=== PATIENT | male | born 1970 | race Caucasian/White ===

== ENCOUNTER 2018-07-01 09:34 | Outpatient (CLI) | payer BC, SELFPAY ==
[2018-07-01 10:02] LABS: Absolute Basophil Count 0.03 k/cumm (0.0-0.2); Absolute Eosinophil Count 0.05 k/cumm (0.0-0.7); Absolute Lymphocyte Count 1.62 k/cumm (1.2-3.4); Absolute Monocyte Count 0.32 k/cumm (0.11-0.7); Absolute Neutrophil Count 2.23 k/cumm (1.2-6.7); Basophils % 0.7; Eosinophils % 1.2; HCT 41.9 % (40.0-50.0); HGB 14.3 g/dL (13.5-17.5); Lymphocytes % 38.1; Mean Corp. HGB Concentration 34.1 g/dL (32.0-36.0); Mean Corpuscular Hemoglobin 28.5 pg (27.0-33.0); Mean Corpuscular Volume 83.6 fL (80-95); Mean Platelet Volume 10.5 fL (8.0-11.0); Monocytes % 7.5; Neutrophils % 52.5; Platelet Count 180 x1000/uL (130-400); RBC 5.01 m/cumm (4.50-6.00); RBC Distribution Width 13.2 % (11.8-14.1); White Blood Cell Count 4.25 k/cumm (4.4-10.8)
[2018-07-01 10:56] LABS: ALT 25 U/L (12-78); AST 18 U/L (15-37); Albumin 3.9 g/dL (3.4-5.0); Alkaline Phosphatase 31 U/L (46-116); Anion Gap 9.8 mmol/L (3-11); BUN 18 mg/dL (7-18); Bilirubin, Total 0.5 mg/dL (0.2-1.0); CO2 26.2 mmol/L (21.0-32.0); CREATININE 1.02 mg/dL (0.70-1.30); Chloride 104 mmol/L (98-107); Cholesterol 150 mg/dL (50-200); Glucose 93 mg/dL (70-100); HDL Cholesterol 44 mg/dL (40-60); LDL CHOLESTEROL 92 mg/dL (<100); Potassium 4.5 mmol/L (3.5-5.1); Sodium 140 mmol/L (136-145); Total Protein 7.1 g/dL (6.4-8.2); Triglyceride 72 mg/dL (30-150)
[2018-07-01 11:19] LABS: Uric Acid 5.6 mg/dL (3.5-7.2)
[2018-07-02 10:04] LABS: HIV-1/2 Ag & Ab Screen Negative (NEGAT)
== END 2018-07-01 09:54 ==
PROVIDERS: PCP Nurse Practitioner Family; Visit Provider Nurse Practitioner Family
DX: I10 Essential (primary) hypertension (principal); E78.5 Hyperlipidemia, unspecified; M10.9 Gout, unspecified; Z51.81 Encounter for therapeutic drug level monitoring; Z11.4 Encounter for screening for human immunodeficiency virus [HIV]
CPT/HCPCS: 36415; 80053; 80061; 83721; 87389; 84550; 85025

== ENCOUNTER 2019-05-31 09:08 | Outpatient (CLI) | payer BC, SELFPAY ==
[2019-05-31 10:05] LABS: Abs Immature Grans 0.01 k/cumm (0.0-0.09); Absolute Basophil Count 0.04 k/cumm (0.0-0.2); Absolute Eosinophil Count 0.06 k/cumm (0.0-0.7); Absolute Lymphocyte Count 1.38 k/cumm (1.2-3.4); Absolute Monocyte Count 0.34 k/cumm (0.11-0.7); Absolute Neutrophil Count 2.71 k/cumm (1.2-6.7); Basophils % 0.9; Eosinophils % 1.3; HCT 40.9 % (40.0-50.0); HGB 13.9 g/dL (13.5-17.5); Immature Grans % 0.2; Lymphocytes % 30.4; Mean Corpuscular Hemoglobin 27.9 pg (27.0-33.0); Mean Platelet Volume 10.3 fL (8.0-11.0); Monocytes % 7.5; Neutrophils % 59.7; Platelet Count 221 x1000/uL (130-400); RBC 4.99 m/cumm (4.50-6.00); RBC Distribution Width 13.5 % (11.8-14.1); White Blood Cell Count 4.54 k/cumm (4.4-10.8)
[2019-05-31 10:29] LABS: Hemoglobin A1C 5.4 % (4.5-6.2)
[2019-05-31 10:45] LABS: ALT 27 U/L (16-63); AST 18 U/L (15-37); Alkaline Phosphatase 27 U/L (46-116); Anion Gap 12.9 mmol/L (3-11); BUN 12 mg/dL (7-18); Bilirubin, Total 0.6 mg/dL (0.2-1.0); CO2 23.1 mmol/L (21.0-32.0); CREATININE 1.02 mg/dL (0.70-1.30); Calcium 9.3 mg/dL (8.5-10.1); Chloride 105 mmol/L (98-107); Glucose 96 mg/dL (74-106); Potassium 4.7 mmol/L (3.5-5.1); Sodium 141 mmol/L (136-145); Total Protein 7.2 g/dL (6.4-8.2); Uric Acid 5.6 mg/dL (3.5-7.2)
[2019-05-31 10:57] LABS: Calculated LDL 102 mg/dL; Cholesterol 164 mg/dL (<200); HDL Cholesterol 43 mg/dL (40-60); Triglyceride 96 mg/dL (<150)
== END 2019-05-31 09:28 ==
PROVIDERS: PCP Nurse Practitioner Family; Visit Provider Nurse Practitioner Family
DX: I10 Essential (primary) hypertension (principal); E78.5 Hyperlipidemia, unspecified; M10.9 Gout, unspecified; E66.9 Obesity, unspecified; Z51.81 Encounter for therapeutic drug level monitoring
CPT/HCPCS: 36415; 80053; 80061; 83036; 84550; 85025

== ENCOUNTER 2019-07-16 14:38 | Outpatient (CLI) | payer BC, SELFPAY ==
--- NOTE | 2019-07-16 15:05 | DI.US_ITS ---
EXAM: US LOWER EXTREMITY VENOUS LT CLINICAL HISTORY: History of plebitis, r/o DVT M79.89 TECHNIQUE: Duplex venous ultrasound of the left lower extremity was performed according to the usual protocol. COMPARISON: No exams were available for comparison FINDINGS: There is no evidence of deep venous thrombosis. Note is made of thrombus in the greater saphenous vein extending to approximately 2.4 cm from the com mon femoral venous confluence. I would note that the greater saphenous is bifurcated and the thrombu s is in 1 of these branches IMPRESSION: Greater saphenous vein thrombus to within 2.4 cm of common femoral vein junction. No deep venous thrombus. Results were communicated to Dr. Moraes.
== END 2019-07-16 14:58 ==
PROVIDERS: PCP Nurse Practitioner Family; Visit Provider Family Medicine
DX: M79.662 Pain in left lower leg (principal); M79.89 Other specified soft tissue disorders; I82.812 Embolism and thrombosis of superficial veins of left lower extremity; Z86.718 Personal history of other venous thrombosis and embolism
CPT/HCPCS: 93971

== ENCOUNTER 2019-11-08 03:26 | Outpatient (CLI) | payer BC, SELFPAY ==
[2019-11-08 16:21] LABS: D-Dimer 422 ng/mlFEU (<500)
== END 2019-11-08 03:46 ==
PROVIDERS: PCP Nurse Practitioner Family; Visit Provider Nurse Practitioner Family
DX: I82.812 Embolism and thrombosis of superficial veins of left lower extremity (principal)
CPT/HCPCS: 36415; 85379

== ENCOUNTER 2020-02-29 15:13 | Outpatient (CLI) | payer BC, SELFPAY ==
--- NOTE | 2020-02-29 15:00 | DI.RAD_ITS ---
EXAM: XR KNEE LT 3V AP,LAT,MIKHAIL CLINICAL HISTORY: knee pain TECHNIQUE: COMPARISON: CR RIGHT KNEE LIMITED 1 OR 2 VIEW from 04/17/2017 FINDINGS: Three views were obtained. Cartilaginous joint spaces appear fairly well maintained. There may be m inimal lateral patellar subluxation. No bony or soft tissue abnormality seen. IMPRESSION: RADIATION DOSE DELIVERED: Total DLP
== END 2020-02-29 15:33 ==
PROVIDERS: PCP Nurse Practitioner Family; Referring Provider Nurse Practitioner Family; Visit Provider Student in an Organized Health Care Education/Training Program
DX: M25.562 Pain in left knee (principal)
CPT/HCPCS: 73562

== ENCOUNTER 2020-03-20 01:19 | Outpatient (CLI) | payer BC, SELFPAY ==
--- NOTE | 2020-03-20 08:40 | DI.MRI_ITS ---
EXAM: MR LOWER JOINT LT WO CLINICAL HISTORY: Acute medial meniscus tear.INTERNAL DERANGEMENT LT KNEE, LT KNEE PAIN TECHNIQUE: Multiplanar multisequence MRI was performed.. COMPARISON: MR MRI R LOWER JOINT WO CONT from 04/28/2017 FINDINGS: MR examination of the knee was performed according to the usual protocol. There is no significant joint effusion. No bony signal abnormality seen. Extensor mechanism and patellofemoral joint: Normal appearance of the articular cartilage of the ramirez llofemoral joint. Normal appearance suprapatellar and infrapatellar fat pads. Normal appearance of patellar tendon and quadriceps tendon. Unremarkable appearance medial and lateral retinacula. Lateral tibiofemoral joint: Normal appearance of the articular cartilage of the femur and tibia. Nor mal appearance of the meniscus and attachments with no evidence of a tear or abnormal signal. No snow dence of lateral collateral ligament injury or posterolateral corner injury. Medial tibiofemoral joint: Normal appearance of the articular cartilage of the femur and tibia. Ther e is tear of the body and posterior horn of the medial meniscus which is an oblique tear, nondisplace d. No significant collateral ligament injury seen. Cruciate ligaments: No evidence of a cruciate ligament tear. IMPRESSION: Nondisplaced oblique tear of the body and posterior horn of the medial meniscus. Otherwise unremarka ble examination. DATA REPOSITORY:
== END 2020-03-20 01:39 ==
PROVIDERS: PCP Nurse Practitioner Family; Visit Provider Student in an Organized Health Care Education/Training Program
DX: S83.242A Other tear of medial meniscus, current injury, left knee, initial encounter (principal); M25.562 Pain in left knee
CPT/HCPCS: 73721

== ENCOUNTER 2020-05-23 03:56 | Outpatient (CLI) | payer BC, SELFPAY ==
[2020-05-24 17:43] LABS: SARS-CoV-2 RNA Not Detected (NotDetected); SARS-CoV-2 RNA Source Nasal/Nares
== END 2020-05-23 04:16 ==
PROVIDERS: PCP Nurse Practitioner Family; Visit Provider Student in an Organized Health Care Education/Training Program
DX: Z01.818 Encounter for other preprocedural examination (principal); S83.242A Other tear of medial meniscus, current injury, left knee, initial encounter
CPT/HCPCS: U0003

== ENCOUNTER 2020-05-26 06:15 | Day surgery (SDC) | payer BC, SELFPAY ==
[2020-05-26 06:26] VITALS: BP 142/56; PULSE 74; RESP 20; TEMP 36.6; O2SAT 98
[2020-05-26] MEDS: Lactated Ringers 1,000 ML 100 ML IV (07:09)
[2020-05-26] MEDS: ceFAZolin 3,000 MG in Normal Saline 100 ML 200 MG IVPB (07:30)
[2020-05-26] MEDS: Bupivacaine 0.25% Pres-Free 30 ML VIAL ×2 (08:17→08:19)
[2020-05-26] MEDS: methylPREDNISolone ACETATE 80 MG/ML VIAL (08:18)
[2020-05-26] MEDS: EPINEPHrine 1 MG/ML AMP pres-free (08:20)
[2020-05-26] MEDS: EPINEPHrine 30 MG/30 ML VIAL ×2 (08:22→08:23)
--- NOTE | 2020-05-26 09:11 | PDOC.DSDIS_ITS ---
Discharge Plan Disposition Patient Disposition: HOME Condition: Stable Discharge Details Reason For Visit: Left knee arthroscopy; Right knee injection Attending Provider: Nabeel Crooks Primary Care Provider: Alaina Garza Home Meds and New Rx's Prescriptions: New ibuprofen 800 mg tablet 800 mg PO BID PRN (Reason: pain, moderate) Qty: 60 RF: 0 aspirin 81 mg tablet,delayed release (DR/EC) 81 mg PO BID 30 Days Qty: 60 RF: 0 ondansetron 4 mg tablet,disintegrating 4 mg PO Q6H PRN (Reason: nausea or vomiting) Qty: 5 RF: 0 oxycodone 5 mg tablet 5 - 10 mg PO Q4H PRN (Reason: moderate to severe pain) Qty: 9 RF: 0 Continued lisinopril 20 mg tablet 20 mg PO DAILY Qty: 90 RF: 3 lorazepam 0.5 mg tablet 0.5 mg PO BID PRN (Reason: Fear of flying) Qty: 4 RF: 0 zolpidem [Ambien] 10 mg tablet 10 mg PO HS PRN (Reason: insomnia) Qty: 12 RF: 1 allopurinol 100 mg tablet 200 mg PO DAILY Qty: 180 RF: 3 sumatriptan succinate 50 mg tablet 50 mg PO PRN Qty: 9 RF: 11 citalopram 20 mg tablet 20 mg PO DAILY Qty: 90 RF: 3 amitriptyline 10 mg tablet 10 mg PO HS Qty: 90 RF: 3 Discharge Instructions Additional Instructions: Surgery: Left knee arthroscopy with partial medial meniscectomy and synovectomy/plica removal. Right knee corticosteroid injection. Activity: Weightbearing as tolerated. Advance range of motion as comfort allows. Important to restore full extension as soon as possible. No knee brace or crutches needed as soon as comfortable. No deep knee flexion for 6 weeks. Recommend avoiding cutting, pivoting, sports, or squatting for 8 weeks. A physical therapy prescription will be provided in the office at follow up if needed. Prescriptions: Aspirin 81 mg take 1 twice a day to prevent a blood clot for 30 days Ibuprofen 800 mg take 1 every 12 hours with a meal as needed for moderate pain Oxycodone 5 mg take 1-2 every 4-6 hours as needed for severe pain You may use [id number] Tylenol (acetaminophen) as needed for mild pain. These pain medications may be taken all at once or in different combinations as needed. Also, recommend Colace (docusate) as a stool softener as surgery and pain medicine cause constipation. Ondansetron (Zofran) 4 mg take 1 orally dissolving tablet every 6 hours as needed for nausea or vomiting Dressings: Leave dressing in place for 2-3 days. May then remove and leave open to air or cover incisions with Band-Aids. May shower after 5 days. Follow-up: 10-[address] Crooks (06/07/20 at 1:00 PM) Let us know right away if you develop any redness, drainage, fevers, chest pain, or trouble breathing. Do not drink alcohol or drive for at least 24 hours after anesthesia. Please call the office during business hours with any questions or concerns. Referrals: Nabeel Crooks MD [ [facility] STAFF PHYSICIAN] - Discharge Orders Discharge Orders: Discharge Order (Routine); Ordered 05/26/20 Ordered By: Nabeel Crooks DS: Diagnosis Discharge Diagnosis (1) Tear of medial meniscus of left knee, current: Status: Acute (2) Chondromalacia patellae of right knee: Status: Acute
--- NOTE | 2020-05-26 09:11 | ROE_ITS ---
Date of service: 05/26/20 Time of Service: 09:11 Operative Note Operative Note DATE OF PROCEDURE: 05/26/20 PRE-OP DIAGNOSIS: 1. Left knee medial meniscus tear 2. Right knee chondromalacia patella POST-OP DIAGNOSIS: other 1. Left knee medial meniscus tear 2. Left knee medial plica 3. Right knee chondromalacia patella PROCEDURE: 1. Left knee arthroscopy with partial medial meniscectomy and medial plica removal, CPT #07154 2. Right knee intra-articular corticosteroid injection, CPT # 27405 SURGEON: Nabeel Crooks [employer]PER[employer]: Marifer Baekr ANESTHESIA: local and spinal ESTIMATED BLOOD LOSS: 5 PATHOLOGY: none sent TOURNIQUET TIME: 0 COMPLICATIONS: None Patient was transported to: PACU Patient's condition: stable Implants: None Indications: Please see complete medical record for details. Findings: Unstable superior leaflet posterior horn and medial meniscus body meniscus tear. Medial synovial fold/plica. Mild cartilage thinning undersurface patella, medial compartment, well-preserved trochlea and lateral. Intact ACL and lateral meniscus. Moderate synovitis patellofemoral pouch. Procedure Description: In the operating room, spinal anesthesia was induced. The patient was positioned supine on the operating room table. All bony prominences were well-padded. Preoperative antibiotics were administered. The left knee was prepped and draped in the usual sterile fashion. The correct patient, procedure, and side of the procedure were all verified prior to incision. Anteromedial and anterolateral portal sites were preinjected with 10 cc of 0.25% bupivacaine containing epinephrine. The anterolateral portal was established first in the standard fashion followed by the anteromedial and followed with a complete knee diagnostic arthroscopy with relevant findings documented above. Attention was then turned to the medial compartment where medial synovial fold or plica was removed and then a probe brought into the medial compartment and the medial meniscus tear identified and margins probed. There was an unstable flap of superior tissue with with fraying. Alternating between the meniscal biter and small shaver the meniscus was debrided to a stable margin. The working and viewing portals were switched of meniscus work completed from this angle. The probe was used to confirm there is no remnant meniscus flipped behind the tibia and at the root posterior horn and body were all stable. The majority of the meniscus remained with good quality. An 18-gauge needle was introduced into the superior patella pouch under direct visualization. The knee was drained of arthroscopic fluid. The portals were closed using 3-0 Monocryl in a buried interrupted fashion and covered with Mastisol, Steri-Strips, dry 4 x 4 gauze. The previously placed needle was used to inject 20 cc of 0.25% bupivacaine containing epinephrine and 4 mg morphine for postoperative analgesia. The knee was wrapped in sterile soft roll and Surendra bandage. The right knee was then uncovered and anatomic landmarks identified. The superolateral approach to the right knee was used to localize placement of a 21- gauge needle into the knee joint and inject 40 mg of methylprednisolone and 5 cc of 0.25% plain bupivacaine. ChloraPrep was used to sterilize the area prior to injection, and the existing spinal used as anesthesia. A Band-Aid was placed ov er the injection site. T The patient awoke from anesthesia without complication and was transferred to the recovery room in a stable condition.
[2020-05-26 09:20] VITALS: BP 108/55; PULSE 54; RESP 18; TEMP 36.5; O2SAT 99
== END 2020-05-26 13:32 | disposition home or self-care (01) ==
PROVIDERS: PCP Nurse Practitioner Family; Visit Provider Student in an Organized Health Care Education/Training Program
PROC: (CPT 29870; principal; 2020-05-26 07:30)
DX: S83.242A Other tear of medial meniscus, current injury, left knee, initial encounter (principal); M22.41 Chondromalacia patellae, right knee; X58.XXXA Exposure to other specified factors, initial encounter; M67.52 Plica syndrome, left knee; M65.862 Other synovitis and tenosynovitis, left lower leg
CPT/HCPCS: 29881; 20610; J0171; J0690; J1040; J1885; J2250; J2405

== ENCOUNTER 2020-07-27 05:04 | Outpatient (CLI) | payer BC, SELFPAY ==
[2020-07-27 09:02] LABS: ALT 24 U/L (16-63); AST 16 U/L (15-37); Alkaline Phosphatase 31 U/L (46-116); Anion Gap 6.4 mmol/L (3-11); BUN 19 mg/dL (7-18); Bilirubin, Total 0.4 mg/dL (0.2-1.0); CO2 27.6 mmol/L (21.0-32.0); CREATININE 1.23 mg/dL (0.70-1.30); Chloride 104 mmol/L (98-107); Glucose 99 mg/dL (74-106); Hemoglobin A1C 5.2 % (<5.7); Potassium 4.2 mmol/L (3.5-5.1); Sodium 138 mmol/L (136-145); Uric Acid 5.6 mg/dL (3.5-7.2)
== END 2020-07-27 05:24 ==
PROVIDERS: PCP Nurse Practitioner Family; Visit Provider Nurse Practitioner Family
DX: I10 Essential (primary) hypertension (principal); M10.9 Gout, unspecified; E66.01 Morbid (severe) obesity due to excess calories; Z13.1 Encounter for screening for diabetes mellitus
CPT/HCPCS: 36415; 80053; 83036; 84550

== ENCOUNTER 2020-10-11 01:39 | Outpatient (CLI) | payer BC, SELFPAY ==
--- NOTE | 2020-10-11 13:34 | DI.US_ITS ---
APPROVED REPORT EXAM: Comprehensive 2D, Doppler, and color-flow Echocardiogram Patient Location: Out-Patient [facility] Filling: Yasmin Sosa RDCS (AE) Indications: Mitral valve prolapse Other Information Study Quality: Technically Difficult. Technically limited study due to body habitus. Conclusion Left Ventricle : The left ventricle is normal size. The left ventricular systolic function is normal. The left ventricular ejection fraction is within the normal range. There is normal left ventricular wall thickness. There is normal LV segmental wall motion. The left ventricular diastolic function is normal. LVEF is 60-65%. Right Ventricle : The right ventricle is normal size. The right ventricular systolic function is norm al. The RVSP is 26.0mmHg. Atria : The left atrium size is normal. The right atrium size is normal. Mitral Valve : The mitral valve is normal in structure. No evidence of mitral valve stenosis. Mild mi tral regurgitation. Mitral regurgitation jet is eccentrically directed. Great Vessels : The aortic root is normal in size. The ascending aorta is normal in size. Aortic arch is normal in caliber. IVC is normal in size and collapses >50% with inspiration. Compared to study from 04/08/2016, there is no significant change. Wall motion Left Ventricle The left ventricle is normal size. The left ventricular systolic function is normal. The left ventric ular ejection fraction is within the normal range. There is normal left ventricular wall thickness. T here is normal LV segmental wall motion. The left ventricular diastolic function is normal. There is no ventricular septal defect visualized. LVEF is 60-65%. Right Ventricle The right ventricle is normal size. The right ventricular systolic function is normal. The RVSP is 26 .0mmHg. Atria The left atrium size is normal. The right atrium size is normal. The interatrial septum is intact wit h no evidence for an atrial septal defect. Aortic Valve The aortic valve is normal in structure. Aortic valve is trileaflet. There is no aortic valvular sten osis. No aortic regurgitation is present. Mitral Valve The mitral valve is normal in structure. No evidence of mitral valve stenosis. Mild mitral regurgitat ion. Mitral regurgitation jet is eccentrically directed. History of mitral valve prolapse though not well visualized today. Tricuspid Valve The tricuspid valve is normal in structure. There is no tricuspid valve stenosis. Trace to mild tricu spid regurgitation. Pulmonic Valve The pulmonary valve is normal in structure. There is no pulmonic valvular stenosis. There is no pulmo gracie valvular regurgitation. Great Vessels The aortic root is normal in size. The ascending aorta is normal in size. Aortic arch is normal in ca liber. IVC is normal in size and collapses >50% with inspiration. Pericardium There is no pericardial effusion. 2D Dimensions IVSD d PLAX 0.96 cm M: 0.6-1.2 LV Vol A2C d MOD 135.4 mL LVPW d PLAX 0.93 cm M: 0.6 - 1.2 LV Vol A4C d MOD 151.8 mL LVID d PLAX 4.38 cm M: 4.2 - 5.8 LA vol/ BSA A2C s A-L 31.7 mL/m2 LVDs 2.75 cm M: 2.5 - 4.0 LA vol/ BSA A4C s A-L 40.0 mL/m2 Ao Root d 3.45 cm M: 3.1 - 3.7 LA Vol/ BSA Biplane s A-L 39.1 mL/m2 RA Area A4C 13.12 cm2 LA Area A4C s MOD 25.49 cm2 RA Vol/ BSA A4C s A-L 14.7 mL/m2 LA Area A2C s MOD 20.64 cm2 Ao Asc Diam d 3.14 cm M: 2.6 - 3.4 LV EF A4C MOD 64.1 % LV EF Teichholz 66.5 % LV EF A2C MOD 59.4 % LVEF (Gracia's) 59.40 % M: 52 - 72 LV EF Biplane MOD 59.4 % LV Volume 107.38 mL M: 62 - 150 SV 87.12 mL LV Volume Index 49.94 mL/m2 M: 34 - 74 SV Index 40.45 mL/m2 LV Vol Biplane MOD 146.7 mL FS 36.45 % M-Mode TAPSE 3.38 cm (M/F) >1.7 LV Diastology MV E' medial 0.085 (>0.07 m/s) E/A Ratio 1.0 LV E/e MED 11.10 (<14) MV E Vmax 0.94 (0.4-1.3 m/s) MV E' lateral 0.140 (>0.1 m/s) MV A Vmax 0.95 (0.4-1.3 m/s) LV E/e LAT 6.70 (<14) MV E/A Ratio 0.98 MV E/E' medial 11.11 MV E/E' lateral 6.72 Aortic Valve LVOT Area 3.83 cm2 AoV Area Vmax 3.22 cm2 LVOT Vmax 1.30 m/s AoV Area/ BSA (Vmax) 1.50 cm2/m2 LVOT Mean Hermilo. 0.83 m/s SHERRY Mean Hermilo. 3.07 cm2 LVOT Peak Grad 6.7 mmHg SHERRY Mean Hermilo. Index 1.42 cm2/m2 LVOT Mean Grad 3.2 mmHg LVOT VTI 0.245 m LVOT Diam s 2.20 cm AoV Vmax 1.54 m/s Velocity Ratio 0.84 AoV Mean Hermilo. 1.03 m/s AoV Peak Grad 9.5 mmHg LVOT SV 93.74 mL AoV Mean Grad 5.0 mmHg AoV VTI 0.274 m AoV Area VTI 3.43 cm2 AoV Area/ BSA (VTI) 1.59 cm/m2 Mitral Valve MV DT 296 (160-240 msec) MV PHT 86 msec MV Area PHT 2.56 cm2 MV VTI 0.331 m MV Area VTI 2.83 (4.0-6.0 cm2) Pulmonary Valve PV Vmax 1.05 (0.5-1.5 m/s) RVOT Peak Gr. 2.38 mmHg PV Peak Grad 4.4 mmHg RVOT Mean Gr. 1.25 mmHg PV Mean Grad 2.4 mmHg RVOT VTI 0.127 m PV VTI 0.192 m RVOT Vmax 0.77 m/s Tricuspid Valve TR Peak Grad 22.9 mmHg TR Vmax 2.40 m/s RA Pressure 3.00 mmHg RVSP (TR) 26.0 mmHg
== END 2020-10-11 01:59 ==
PROVIDERS: PCP Nurse Practitioner Family; Visit Provider Nurse Practitioner Family
DX: I05.9 Rheumatic mitral valve disease, unspecified (principal)
CPT/HCPCS: 93306

== ENCOUNTER 2021-03-20 08:20 | Outpatient (CLI) | payer BC, SELFPAY ==
[2021-03-21 18:31] LABS: COVID-19 RT-PCR UVMMC Result Positive (Negative)
== END 2021-03-20 08:21 | disposition home or self-care (01) ==
PROVIDERS: PCP Nurse Practitioner Family; Visit Provider Nurse Practitioner Family
DX: Z20.822 Contact with and (suspected) exposure to COVID-19 (principal)
CPT/HCPCS: U0003

== ENCOUNTER 2021-07-27 01:34 | Outpatient (CLI) | payer BC, SELFPAY ==
[2021-07-27 11:23] LABS: Source Nasal/Nares
[2021-07-27 14:01] LABS: COVID-19 PCR Negative (Negative)
== END 2021-07-27 01:35 | disposition home or self-care (01) ==
LOC: LBO 01:34
PROVIDERS: PCP Nurse Practitioner Family; Visit Provider Surgery
DX: Z20.822 Contact with and (suspected) exposure to COVID-19 (principal)
CPT/HCPCS: 87635

== ENCOUNTER 2021-07-30 06:06 | Day surgery (SDC) | payer BC, SELFPAY ==
[2021-07-30 06:29] VITALS: BP 134/93; PULSE 69; RESP 16; TEMP 36.4; O2SAT 99
--- NOTE | 2021-07-30 06:40 | W.COLOREPORT ---
Colonoscopy Report Date of procedure: 07/30/21 Pre-op diagnosis general: Colon Cancer Screening Post-op diagnosis procedure note: other (colorectal polyps and diverticulosis) Procedure: Colonoscopy with polypectomy Surgeon: Kelsi Grant Anesthesia Type: General:No Airway (Prashant Machado CRNA) Estimated blood loss (mL): 3 Pathology: other (cecal polyp and descending polyp x2) Complications: None Disposition: same day Indications: The patient is here for Colonoscopy pre-op. He has no family history of colon cancer. He has not had any bowel habit changes. -Discussed colonoscopy bowel prep as well as the procedure. Discussed possible complications of the procedure to include bleeding, pain, perforation, missed small lesion/polyp, sore throat, aspiration and adverse reaction to the medications. Questions were answered to patient?s satisfaction. No guarantees were implied or given. He will hold his ibuprofen use for 5 days prior to his procedure. He will hold his Lisinopril the morning of his procedure. I spent 29 minutes in reviewing the record, seeing the patient, providing patient education, answering patient's questions and documenting in the medical record. P// Colonoscopy under sedation Prep: Miralax/Dulcolax Procedure Start Time: 07:26 Procedure End Time: 07:44 Retraction Time: 8 minutes Findings: 3 small polyps Procedure Description: After informed consent was obtained the patient was taken to the procedure room and placed in a left decubitous position. Monitors were applied and a time out was done. The patients name, date of , procedure, allergies to medications and metal in their body was reviewed. The patient was then sedated. Once sedated and comfortable a rectal exam was done. External exam was normal. Internal exam revealed a normal sphincter tone and no palpable masses. The prostate felt smooth and slightly enlarged. The scope was then introduced and retro-flexed. No internal hemorrhoids, polyps or masses were identified on retro-flexion. The scope was then advanced to the cecum without difficulty. The ileocecal vlave and appendiceal orifice were identified. The prep was adequate. The scope was then slowly retracted over 8 minutes back into the rectum. Polyps were removed with cold forceps in the cecum and descending colon x2. There was moderate descending and sigmoid diverticulosis noted. The scope was removed and the patient was woken up and taken back to Same day surgery in stable condition. The patient tolerated the procedure well and there were no immediate complications. Follow up: The patient should follow up in 5 years unless they develop changes in bowel habits or other new gastrointestinal complaints.
--- NOTE | 2021-07-30 06:40 | W.PM.DSUDISC ---
Discharge Plan Disposition Patient Disposition: HOME Condition: Good Discharge Details Reason For Visit: Colonoscopy Attending Provider: Kelsi Grant Primary Care Provider: Alaina Garza Home Meds and New Rx's Prescriptions: Continued omeprazole magnesium [Prilosec OTC] 20 mg tablet,delayed release (DR/EC) 20 mg PO DAILY Qty: 90 RF: 1 lorazepam 0.5 mg tablet 0.5 mg PO BID PRN (Reason: Fear of flying) Qty: 4 RF: 0 zolpidem [Ambien] 10 mg tablet 10 mg PO HS PRN (Reason: insomnia) Qty: 12 RF: 1 allopurinol 100 mg tablet 200 mg PO DAILY Qty: 180 RF: 3 sumatriptan succinate 50 mg tablet 50 mg PO PRN Qty: 9 RF: 11 amitriptyline 10 mg tablet 10 mg PO HS Qty: 90 RF: 3 citalopram 20 mg tablet 20 mg PO DAILY Qty: 90 RF: 3 lisinopril 20 mg tablet 20 mg PO DAILY Qty: 90 RF: 3 ibuprofen 800 mg tablet 800 mg PO BID PRN (Reason: pain, moderate) Qty: 60 RF: 0 Discontinued polyethylene glycol 3350 17 gram/dose powder 238 g PO ONCE Qty: 238 RF: 0 bisacodyl [Dulcolax (bisacodyl)] 5 mg tablet,delayed release (DR/EC) 5 mg PO ONCE Qty: 4 RF: 0 Discharge Instructions Additional Instructions: Findings: 3 small polyps diverticulosis Follow up: 5 years more then likely Please call if you develop: fevers >101.5 Nausea or Vomiting Abdominal pain that is not transient Rectal bleeding that is more then a tbsp A hard abdomen and inability to pass gas DAY SURGERY UNIT POST ENDOSCOPY INSTRUCTIONS Instructions for everyone who is given Anesthesia: For your safety, please do the following for the next 24 Hours: a. Do not drive or operate dangerous equipment b. Do not drink alcohol beverages or use any recreational drugs for the first 24 hours or while taking pain medications. The medications in your body may have a reaction that can be dangerous. c. Do not make any important decisions or sign any important papers 1. Generally there are no restrictions on your activity after a day or so has gone by, but you may feel a bit fatigued for a few days. 2. After you arrive home you may have a light meal and return to a normal diet as you can tolerate it without feeling sick to your stomach. 3. After surgery, you may feel pain or discomfort. This should be only transient, but if it persists please contact your doctor. 4. If there are any questions regarding the findings of your procedure, please feel free to contact your doctor. 6. If you are unable to contact your doctor with a problem, contact the hospital at [phone]. 7. Continue all your regular medications unless directed otherwise. I understand the above instructions and have no questions. Signature of Patient or Responsible Adult Escort Date/Time Name of Responsible Adult Escort Signature of Nurse Date/Time Activity:: Activity as Tolerated Diet:: high fiber diet Discharge Orders Discharge Orders: Discharge Order (Routine); Ordered 07/30/21 Ordered By: Kelsi Grant
[2021-07-30] MEDS: Lactated Ringers 1,000 ML 80 ML IV (06:43)
--- NOTE | 2021-07-30 06:56 | ANES.PREOP_ITS ---
General Info Date of Service Date Performed: 07/30/21 Height: 5 ft 3 in Weight: 126 kg Body Mass Index (BMI): 49.1 Surgical Procedure: Operation Date: 07/30/21 07:35 Proposed Procedures Side Surgeon p Colonoscopy Kelsi Grant MD Meds Allergies and Home Medications Allergies Allergy/AdvReac Type Severity Reaction Status Date / Time oxaprozin Allergy hives, Verified 07/30/21 06:39 nausea, anxiousness prochlorperazine Allergy hives, Verified 07/30/21 06:39 anxious Home Medication Medication Instructions Recorded lorazepam 0.5 mg tablet 0.5 mg PO BID PRN #4 tab-cap 12/08/18 zolpidem 10 mg tablet 10 mg PO HS PRN #12 tab-cap 07/16/19 ibuprofen 800 mg PO BID PRN #60 tab 05/26/20 allopurinol 100 mg tablet 200 mg PO DAILY #180 tab-cap 08/25/20 sumatriptan succinate 50 mg tablet 50 mg PO PRN #9 tab-cap 09/27/20 amitriptyline 10 mg tablet 10 mg PO HS #90 tab 03/09/21 citalopram 20 mg tablet 20 mg PO DAILY #90 tab-cap 03/09/21 omeprazole magnesium 20 mg 20 mg PO DAILY #90 tab 03/15/21 tablet,delayed release lisinopril 20 mg tablet 20 mg PO DAILY #90 tab-cap 06/21/21 bisacodyl 5 mg tablet,delayed 5 mg PO ONCE #4 tab 07/13/21 release polyethylene glycol 3350 17 238 g PO ONCE #238 g 07/13/21 gram/dose oral powder Current Visit Medications: Current Medications Generic Name Dose Route Start Last Admin Trade Name Freq PRN Reason Stop Dose Admin Hyoscyamine Sulfate 0.125 mg 07/30/21 06:41 Hyoscyamine 0.125 Mg Sl/Oral/Chew SL DIRECTED PRN Ringer's Solution 1,000 mls @ 80 mls/hr 07/30/21 06:00 07/30/21 06:43 IV 08/26/21 23:59 80 mls/hr INFUSION ROGE Administration IV Miscellaneous Supplies 1 each 07/30/21 06:00 Iv Access IV 08/26/21 23:59 DIRECTED ROGE Ondansetron HCl 4 mg 07/30/21 06:41 Ondansetron 4 Mg/2 Ml Vial IVP Q4H PRN PRN Nausea / Vomiting Sodium Chloride 0 ml 07/30/21 06:00 Normal Saline Flush 10 Ml Syr IV 08/26/21 23:59 PRN PRN Sodium Chloride 0 ml 07/30/21 06:00 Normal Saline 10 Ml Vial IJ 08/26/21 23:59 DIRECTED PRN Sterile Water 0 ml 07/30/21 06:00 Water,Injection,Sterile 10 Ml Vial IJ 08/26/21 23:59 DIRECTED PRN PFSH Active Problems Active Problems: Problem Status Onset Code GERD (gastroesophageal reflux disease) 03/04/21 K21.9 Mitral valve prolapse 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 Tear of medial meniscus of left knee, current ~11/2019 S83.242A Controlled substance agreement signed Z79.899 Obesity, morbid, BMI 40.0-49.9 E66.01 Migraines Anxiety 07/07/04 F41.9 Dyslipidemia 04/19/08 E78.5 Essential hypertension 08/07/00 I10 Gout 07/07/00 M10.9 Insomnia, unspecified 09/20/11 G47.00 Other thalassemia 07/07/98 D56.8 Medical History Medical History Acute superficial venous thrombosis of left lower extremity (~07/2019) Anxiety (07/07/04) CITALOPRAM RESPONSIVE; failed taper ?2013 Chondromalacia patellae of right knee Dyslipidemia (04/19/08) H/o elevated LDL; 05/2019 labs: 10-year ASCVD risk = ~2.7% --> no statin indicated at this time Essential hypertension (08/07/00) GERD (gastroesophageal reflux disease) (03/04/21) Gout (07/07/00) HYPERURICEMIA CONTROLLED ON ALLOPURINOL History of kidney stones (12/03/16) most recent 04/2016; lithotripsy 05/2016 Joceline Insomnia, unspecified (09/20/11) Ambien effective; agreement for ~10/mo Migraines Onset school age; +visual aura Mitral valve prolapse 10/2020 echo: mild MR --> repeat 3-5 yrs Obesity, morbid, BMI 40.0-49.9 Other thalassemia (07/07/98) MICROCYTOSIS 1998 Tear of medial meniscus of left knee, current (~11/2019) Medical History Comments:: Pt. reports he has motion sickness. Pt. has contacts in this morning. Surgical History Surgical History Arthroplasty of knee (05/26/17) right - not a total knee, but a micro fx fix and scope. Lithotripsy (~05/2016) Repair of inguinal hernia (01/09/06) (R) Dariel Salgado Status post medial meniscectomy of left knee (~05/2020) Dr. Pena Tobacco Smoking/Tobacco Use Status: Never Passive smoking exposure: Yes Alcohol Alcohol Intake: current Alcohol intake frequency: holidays/special occasions only Substance Use Substance use: Never Substance use type: does not use Vital Signs and Lab Results Vital Signs Most Recent Vital Signs in EMR: Most Recent Vital Signs Temp Pulse Resp BP Pulse Ox 36.4 C L 69 16 134/93 H 99 07/30/21 06:29 07/30/21 06:29 07/30/21 06:29 07/30/21 06:29 07/30/21 06:29 Lab Results Blood Type / Crossmatch: No Data to Display Complete Blood Count: No Data to Display Complete Metabolic Panel: No Data to Display Liver Function Panel: No Data to Display Coagulation Panel: No Data to Display Cardiac Panel: No Data to Display Arterial Blood Gas: No Data to Display Venous Blood Gas: No Data to Display Pancreas Panel: No Data to Display Thyroid Panel: No Data to Display Infectious Disease: Coronavirus (COVID-19)(PCR) Negative (Negative) 07/27/21 08:35 07/27/21 Coronavirus 2019 Source Nasal/Nares 07/27/21 08:35 07/27/21 Blood Cultures: No Data to Display Toxicology Panel: No Data to Display Imaging and Studies Imaging and Studies Study information below may be from another EMR and interpreted by another provider. Please see original notes in EMR for more complete details. Echocardiogram Summary: Date of Exam: 10/11/20Sex: M Admission Date: 10/11/20 : 1970 Age: 49 Indications: Mitral valve prolapse Conclusion Left Ventricle : The left ventricle is normal size. The left ventricular systolic function is normal. The left ventricular ejection fraction is within the normal range. There is normal left ventricular wall thickness. There is nor mal LV segmental wall motion. The left ventricular diastolic function is normal. LVEF is 60-65%. Right Ventricle : The right ventricle is normal size. The right ventricular systolic function is normal. The RVSP is 26.0mmHg. Atria : The left atrium size is normal. The right atrium size is normal. Mitral Valve : The mitral valve is normal in structure. No evidence of mitral valve stenosis. Mild mitral regurgitation. Mitral regurgitation jet is eccentrically directed. Great Vessels : The aortic root is normal in size. The ascending aorta is normal in size. Aortic arch is normal in caliber. IVC is normal in size and collapses >50% with inspiration. Compared to study from 04/08/2016, there is no significant change. Pulmonary Function Summary: Date: 10/25/2013 Diagnosis: Recent bout of bronchitis No hx of smoking SPIROMETRY: Spirometry shows no evidence of obstructive airways disease, no bronchodilator testing was carried out. IMPRESSION: Normal spirometry. Anesthesia Assessment and Plan Anesthesia History Personal History: No History of Anesthesia Complications Family History: No Family History of Anesthesia Complications Exercise Tolerance Exercise Tolerance: Metabolic Equivalents>4 Pertinent Negatives Pertinent Negatives: No Symptoms of GERD Cardiac & Pulmonary Exam Cardiac Exam: Normal S1/S2 Heart Sounds Pulmonary Exam: Clear Bilateral Breath Sounds Implantable Cardiac Device Does patient have a Pacemaker or an ICD?: No Airway Exam Known Difficult Airway: No Mallampati Class: 1 Mouth Opening: Normal (> 3cm) Thyromental Distance: Greater than 3 cm Neck Range of Motion: Full ROM Neck Circumference: Thick Teeth Condition: Normal Dentition ASA Classification ASA Score: ASA 3 Emergency Case?: No NPO Status NPO Status: NPO Clears >2 hours, Solids >8 hours Anesthesia Plan Resuscitation Status: Full Code Anesthesia Technique: General Anesthesia Airway Planned: Natural Airway Monitors Used: Standard Monitors
[2021-07-30 07:13] VITALS: BMI 49.1
[2021-07-30 07:47] VITALS: BP 102/57; PULSE 72; RESP 118; TEMP 36.5; O2SAT 94
--- NOTE | 2021-07-30 08:11 | W.ANESPOSTOP ---
Postoperative Evaluation Date, Time and Location Date Performed: 07/30/21 Time Performed: 08:00 Patient Location: Day Surgery Unit Vital Signs Most Recent Imported Vital Signs: Most Recent Vital Signs Temp Pulse Resp BP Pulse Ox 36.5 C 72 118 H 102/57 L 94 07/30/21 07:47 07/30/21 07:47 07/30/21 07:47 07/30/21 07:47 07/30/21 07:47 Pain Score Most Recent Pain Score: Most Recent Pain Score Pain Level 0 07/30/21 07:47 Assessment Mental Status: Awake (Alert & Oriented to Patient Baseline) Airway and Respiratory Function: Patent airway with normal (patient baseline) respiratory exam Cardiovascular Function: Hemodynamically Stable Hydration Status: Adequately Hydrated Nausea & Vomiting: No Nausea or Vomiting Pain: Pt. Denies Any Pain Peripheral Nerve Block: Patient did not receive a nerve block
[2021-07-30 08:13] VITALS: BP 104/60; PULSE 61; RESP 16; TEMP 36.3; O2SAT 97
--- NOTE | 2021-07-30 09:32 | BOWEL_PTH ---
PATIENT: Travis Sanchez LOC: [facility] U#:[id number] AGE/SX: 50/M ROOM: RE07/30/[address]: Kelsi Grant MD : 1970 BED: DIS: 07/30/2021 SPEC #: [id number] RECD: 07/30/21 12:26 STATUS: BECKY REQ #: [id number] FISH: 07/30/21 09:[address]: Kelsi Grant DEPT: Surgical Specimen RECD BY: Xiomara Del Toro ENTERED: 07/30/21 12:26 SP TYPE: Bowel OTHR DR: Alaina Garza, KALA Tissues: 1 - BIOPSY BOWEL 2 - BIOPSY BOWEL Procedures: GROSS AND MICRO LEVEL 4 Comments: [id number]
== END 2021-07-30 08:54 | disposition home or self-care (01) ==
PROVIDERS: PCP Nurse Practitioner Family; Visit Provider Surgery
PROC: 0DJD8ZZ Inspection of Lower Intestinal Tract, Via Natural or Artificial Opening Endoscopic (ICD-10-PCS; CPT 45378; principal; 2021-07-30 07:30)
DX: Z12.11 Encounter for screening for malignant neoplasm of colon (principal); D12.0 Benign neoplasm of cecum; K57.30 Diverticulosis of large intestine without perforation or abscess without bleeding; I10 Essential (primary) hypertension; E78.5 Hyperlipidemia, unspecified; I34.0 Nonrheumatic mitral (valve) insufficiency; D12.4 Benign neoplasm of descending colon
CPT/HCPCS: 45380; 88305; J2405

== ENCOUNTER 2021-09-18 01:38 | Outpatient (CLI) | payer BC, SELFPAY ==
[2021-09-18 09:06] LABS: Abs Immature Grans 0.01 10^3/uL (0.0-0.06); Absolute Basophil Count 0.04 10^3/uL (0.0-0.2); Absolute Eosinophil Count 0.17 10^3/uL (0.0-0.7); Absolute Lymphocyte Count 1.75 10^3/uL (1.2-3.4); Absolute Neutrophil Count 3.42 10^3/uL (1.2-6.7); Basophils % 0.7; Eosinophils % 2.9; HCT 43.4 % (40.0-50.0); HGB 14.2 g/dL (13.5-17.5); Immature Grans % 0.2; Lymphocytes % 30.2; MCH 26.9 pg (27.0-33.0); MCHC 32.7 % (32.0-36.0); MCV 82.4 fL (80-95); MPV 10.3 fL (8.0-11.0); Monocytes % 6.9; Neutrophils % 59.1; Nucleated RBC 0 %; Platelet Count 189 10^3/uL (130-400); RBC 5.27 10^6/uL (4.36-5.78); RDW 13.3 % (11.8-14.1); RDW-SD 39.7 fL; WBC 5.79 10^3/uL (4.4-10.8)
[2021-09-18 10:00] LABS: ALT 27 U/L (16-63); AST 17 U/L (15-37); Albumin 3.7 g/dL (3.4-5.0); Alkaline Phosphatase 39 U/L (46-116); Anion Gap 10.1 mmol/L (3-11); BUN 24 mg/dL (7-18); Bilirubin, Total 0.3 mg/dL (0.2-1.0); CO2 24.9 mmol/L (21.0-32.0); Calcium 8.6 mg/dL (8.5-10.1); Calculated LDL 58 mg/dL (<100); Chloride 105 mmol/L (98-107); Cholesterol 140 mg/dL (<200); Glucose 91 mg/dL (74-106); HDL Cholesterol 34 mg/dL (40-60); Potassium 4.2 mmol/L (3.5-5.1); Sodium 140 mmol/L (136-145); Total Protein 7.2 g/dL (6.4-8.2); Triglyceride 243 mg/dL (<150)
[2021-09-18 10:12] LABS: Uric Acid 5.8 mg/dL (3.5-7.2)
[2021-09-19 10:45] LABS: Hepatitis C Ab w Rflx HCV PCR Negative (Negative)
== END 2021-09-18 01:39 | disposition home or self-care (01) ==
LOC: LBO 01:39
PROVIDERS: PCP Nurse Practitioner Family; Visit Provider Nurse Practitioner Family
DX: D56.8 Other thalassemias (principal); I10 Essential (primary) hypertension; E78.5 Hyperlipidemia, unspecified; M10.9 Gout, unspecified; Z11.59 Encounter for screening for other viral diseases
CPT/HCPCS: 36415; 80053; 80061; 86803; 84550; 85025

== ENCOUNTER 2022-12-18 03:36 | Outpatient (CLI) | payer BC, SELFPAY ==
[2022-12-18 09:37] LABS: Abs Immature Grans 0.01 10^3/uL (0.0-0.06); Absolute Basophil Count 0.04 10^3/uL (0.0-0.2); Absolute Eosinophil Count 0.06 10^3/uL (0.0-0.7); Absolute Lymphocyte Count 1.74 10^3/uL (1.2-3.4); Absolute Monocyte Count 0.37 10^3/uL (0.1-0.8); Absolute Neutrophil Count 2.89 10^3/uL (1.2-6.7); Basophils % 0.8; Eosinophils % 1.2; HCT 39.3 % (40.0-50.0); HGB 12.6 g/dL (13.5-17.5); Immature Grans % 0.2; Lymphocytes % 34.1; MCH 25.4 pg (27.0-33.0); MCHC 32.1 % (32.0-36.0); MCV 79 fL (80-95); MPV 10.1 fL (8.0-11.0); Monocytes % 7.2; Neutrophils % 56.5; Platelet Count 211 10^3/uL (130-400); RBC 4.96 10^6/uL (4.36-5.78); RDW 14.6 % (11.8-14.1); RDW-SD 42.1 fL; WBC 5.11 10^3/uL (4.4-10.8)
[2022-12-18 10:21] LABS: ALT 28 U/L (16-63); AST 19 U/L (15-37); Albumin 3.8 g/dL (3.4-5.0); Alkaline Phosphatase 30 U/L (46-116); Anion Gap 8.7 mmol/L (3-11); BUN 17 mg/dL (7-18); Bilirubin, Total 0.7 mg/dL (0.2-1.0); CO2 24.3 mmol/L (21.0-32.0); CREATININE 0.9 mg/dL (0.70-1.30); Calcium 8.8 mg/dL (8.5-10.1); Calculated LDL 84 mg/dL (<100); Chloride 106 mmol/L (98-107); Cholesterol 145 mg/dL (<200); Estimated GFR 102.12 (mL/min/1.73m2); Glucose 95 mg/dL (74-106); HDL Cholesterol 48 mg/dL (40-60); Potassium 4.2 mmol/L (3.5-5.1); Sodium 139 mmol/L (136-145); Total Protein 7.6 g/dL (6.4-8.2); Triglyceride 66 mg/dL (<150)
[2022-12-18 12:43] LABS: Uric Acid 5.7 mg/dL (3.5-7.2)
== END 2022-12-18 03:37 | disposition home or self-care (01) ==
LOC: LBO 03:36
PROVIDERS: PCP Nurse Practitioner Family; Visit Provider Nurse Practitioner Family
DX: M10.9 Gout, unspecified (principal); I10 Essential (primary) hypertension; Z13.1 Encounter for screening for diabetes mellitus; Z51.81 Encounter for therapeutic drug level monitoring; E78.5 Hyperlipidemia, unspecified
CPT/HCPCS: 36415; 80053; 80061; 84550; 85025

== ENCOUNTER 2023-05-13 01:10 | Outpatient (CLI) | payer BC, SELFPAY ==
[2023-05-13 13:08] LABS: HCT 42.5 % (40.0-50.0); HGB 13.4 g/dL (13.5-17.5)
== END 2023-05-13 01:11 | disposition home or self-care (01) ==
PROVIDERS: PCP Nurse Practitioner Family; Visit Provider Nurse Practitioner Family
DX: D50.9 Iron deficiency anemia, unspecified (principal)
CPT/HCPCS: 36415; 85014; 85018

== ENCOUNTER → 2023-06-18 10:39 | Outpatient (CLI) | payer BC, SELFPAY ==
--- NOTE | 2023-06-18 14:25 | DI.RAD_ITS ---
Exam(s) XR CHEST 2V PA LATERAL EXAM: XR CHEST 2V PA LATERAL CLINICAL HISTORY: Rib pain/contusion, S20.219A, r/o fx TECHNIQUE: 2D digital imaging was performed. COMPARISON: CR CHEST 2 VIEWS PA,LAT from 08/27/2013 FINDINGS: Exam is limited by the patient's body habitus. HEART: Normal size. Aorta: Not dilated. PULMONARY VASCULATURE: Normal. LUNGS: Minimal linear areas of scarring or atelectasis. Clear. PLEURAL SPACE: No pleural effusion or pneumothorax. BONE:Degenerative changes. No compression fractures. No visible rib fracture. Soft tissues: Unremarkable. IMPRESSION: No acute abnormality. DATA REPOSITORY: RADIATION DOSE DELIVERED:
== END ==
PROVIDERS: PCP Nurse Practitioner Family; Visit Provider Student in an Organized Health Care Education/Training Program
DX: S20.20XA Contusion of thorax, unspecified, initial encounter (principal); X58.XXXA Exposure to other specified factors, initial encounter; R07.81 Pleurodynia
CPT/HCPCS: 71046

== ENCOUNTER 2023-08-28 01:36 | Outpatient (CLI) | payer BC, SELFPAY ==
[2023-09-03 10:40] LABS: Protein C, Functional 101 % (71-199); Protein S, Functional 120 % (73-156)
== END 2023-08-28 01:37 | disposition home or self-care (01) ==
LOC: LBO 01:36
PROVIDERS: PCP Family Medicine; Referring Provider Family Medicine; Visit Provider Family Medicine
DX: I82.431 Acute embolism and thrombosis of right popliteal vein (principal)
CPT/HCPCS: 36415; 85306; 85303

== ENCOUNTER 2023-08-28 12:49 | Outpatient (RCR) | payer BC, SELFPAY ==
--- NOTE | 2023-08-28 13:15 | HOLTER_ITS ---
APPROVED REPORT Conclusion This is a 48-hour Holter monitor ordered for PVCs Rhythm throughout was sinus with an average heart rate of 73. Minimum 55, maximum 115 There were very rare isolated ventricular ectopic beat, and a total of 131 in 49 hours There were very rare atrial premature beats There was no atrial fibrillation, no high-grade AV block, no pauses greater than 3 seconds No symptoms were reported
== END 2023-09-04 23:59 | disposition home or self-care (01) ==
LOC: CARDOPNVT 12:49
PROVIDERS: PCP Family Medicine; Visit Provider Internal Medicine Cardiovascular Disease
DX: R00.2 Palpitations (principal)
CPT/HCPCS: 93225; 93226

== ENCOUNTER 2024-07-02 01:48 | Outpatient (CLI) | payer BC, SELFPAY ==
[2024-07-02 10:15] LABS: BUN 12 mg/dL (7-18); CREATININE 1.1 mg/dL (0.70-1.30); Calcium 9.5 mg/dL (8.5-10.1); Calculated LDL 90 mg/dL (<100); Chloride 107 mmol/L (98-107); Cholesterol 159 mg/dL (<200); Estimated GFR 79.77 (mL/min/1.73m2); Glucose 97 mg/dL (74-106); HDL Cholesterol 52 mg/dL (40-60); Potassium 4.6 mmol/L (3.5-5.1); Sodium 142 mmol/L (136-145); Triglyceride 86 mg/dL (<150)
== END 2024-07-02 01:49 | disposition home or self-care (01) ==
PROVIDERS: PCP Family Medicine; Visit Provider Family Medicine
DX: E78.5 Hyperlipidemia, unspecified (principal); I10 Essential (primary) hypertension
CPT/HCPCS: 36415; 80048; 80061